=== PATIENT | female | born 2005 | race Caucasian/White ===

== ENCOUNTER 2023-03-18 08:19 | Outpatient (CLI) | payer OTHER, MEDICAID, SELFPAY ==
--- NOTE | 2023-03-18 08:30 | CT_ITS ---
WS: [id number] CT SINUSES TECHNIQUE: Noncontrast CT of the paranasal sinuses with coronal and sagittal reformatted images. CLINICAL INFORMATION: sinusitis COMPARISON: None. DLP: 330.[address] scans at [facility] use at least one of these dose optimization techniques: automated e xposure control; mA and/or kV adjustment per patient size (includes targeted exams where dose is matc hed to clinical indication); or iterative reconstruction. FINDINGS: Minimal nasal septal deviation. Paranasal sinuses are well aerated. Paranasal sinuses are well aerate d. Frontal sinuses, ethmoid air cells, maxillary sinuses well aerated. Sphenoid sinuses are well aera kori. Sphenoid sinus ostia are patent. Mastoid air cells well aerated. Ostiomeatal units are patent bi laterally with trace mucosal thickening. CT/CT sinus wo con* [id number] IMPRESSION: 1. Minimal nasal deviation measuring 2 mm. 2. Paranasal sinuses are well aerated. 3. Mild mucosal thickening along the ostiomeatal units which are patent. 4. Mastoid air cells well aerated. Normal posterior nasopharynx. 5. No other suspicious findings.
== END 2023-03-18 08:20 | disposition home or self-care (01) ==
LOC: RAD 08:22
PROVIDERS: Visit Provider Otolaryngology
DX: J32.9 Chronic sinusitis, unspecified (principal)
CPT/HCPCS: 70486

== ENCOUNTER 2023-11-10 17:10 | Emergency (ER) | payer MEDICAID, SELFPAY ==
[2023-11-10 17:13] VITALS: BP 127/78; PULSE 82; RESP 18; TEMP 36.6; O2SAT 100; BMI 27.4
--- NOTE | 2023-11-10 17:16 | ECG_ITS ---
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 Measurements Intervals [place] Rate: 76 P: 73 NV: 153 QRS: 86 QRSD: 85 T: 62 QT: 360 QTc: 405 Interpretive Statements SINUS RHYTHM WITH MARKED SINUS ARRHYTHMIA No previous ECG available for comparison Electronically Signed On 11-11-2023 15:39:40 CDT by Quin Ramirez M.D. [id number]
--- NOTE | 2023-11-10 17:16 | XRR_ITS ---
PROCEDURE INFORMATION: Exam: XR Chest Exam date and time: 11/10/2023 5:52 PM Age: 18 years old Clinical indication: Angina pectoris; Patient HX: Lt anterior chest pain TECHNIQUE: Imaging protocol: Radiologic exam of the chest. Views: 1 view. COMPARISON: No relevant prior studies available. FINDINGS: Lungs: Unremarkable. No consolidation. Pleural spaces: Unremarkable. No pleural effusion. No pneumothorax. Heart/Mediastinum: Unremarkable. No cardiomegaly. Bones/joints: Unremarkable. XR/XR chest 1V portable [id number] IMPRESSION: No acute findings.
--- NOTE | 2023-11-10 17:54 | ED_ITS ---
HPI - Chest Pain 2 General: Chief Complaint: Chest Pain Stated Complaint: chest pain Time Seen by Provider: 11/10/23 17:43 History of Present Illness: 18-year-old female comes in today with c omplaints of chest discomfort in the left chest wall for the last 4 days. Patient reports that it feels like pressure. Patient has no chronic medical problems. Patient has had her appendix and gallbladder both removed. Patient does take medications for depression, anxiety, and allergies. Patient was on a cruise when the symptoms started. Patient just recently got back from the cruise. Respirations are even. Patient appears nontoxic. Patient appears in mild pain. Review of Systems 2 General: Reports: 10 or more systems reviewed and unremarkable except in HPI and below Card: Reports: chest pain PFSH ED 2 PFSH: Surgical History Hx of cholecystectomy Social History Smoking and tobacco/nicotine status: current every day tobacco/nicotine user e- cigarettes E-Cigarette Details: vaporizer device Female Reproductive History: Date of last menstrual period: 10/04/23 Physical Exam 2 Const: COMMON NORMALS: alert HENMT: COMMON NORMALS: normocephalic HEAD & SCALP: normocephalic Neck/C-Spine: COMMON NORMALS: full ROM Chest: COMMONS NORMALS: normal palpation of entire chest wall Resp: COMMON NORMALS: normal respiratory effort and clear to auscultation bilaterally AUSCULTATION: clear to auscultation bilaterally Cardio: COMMON NORMALS: regular rate and regular rhythm RATE: regular rate RHYTHM: regular rhythm GI: COMMON NORMALS: Soft to palpation and non-tender PALPATION: Yes Soft to palpation : COMMON NORMALS: Yes no CVA tenderness BLADDER/KIDNEY EXAM: Yes no CVA tenderness Back/Pelvis: COMMON NORMALS: no CVA tenderness and thoracic and lumbar spine normal to inspection Extremity: COMMON NORMALS: no pedal edema Neuro: SENSORIUM/ORIENTATION: Yes alert Skin: COMMON NORMALS: turgor normal GENERAL SKIN EXAM: turgor normal Course 2 Vital Signs: Vital signs: Vital Signs Temperature 97.9 F 11/10/23 17:13 Pulse Rate 82 11/10/23 17:13 Respiratory Rate 18 11/10/23 17:13 Blood Pressure 127/78 11/10/23 17:13 Pulse Oximetry 100 11/10/23 17:13 Oxygen Delivery Me thod Room Air 11/10/23 17:13 MDM - Chest Pain Medical Decision Making 18-year-old female comes in today with chest pressure/pain. Patient reports symptoms for last 4 days. Patient reports improvement in pain with rest. Patient appears nontoxic. Respirations are even lungs are clear to auscultation. Skin is warm and dry. Vital signs are normal. Differential diagnosis includes but not limited to PE, ACS, pericarditis, myocarditis, anxiety, pleurisy. 1850, CBC and CMP were unremarkable. Troponin was normal. EKG showed normal sinus rhythm with sinus arrhythmia. Chest x-ray was normal. Inflammatory markers said rate and CRP were both negative. D-dimer was negative. hCG was positive. Believe the patient's symptoms are probably secondary to her and recent cruise ship adventure. Patient was upset about being but family was present and were going to take her and talk with her about it further. 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 Patient was agreeable to plan of care and need for follow-up or return to the ER. Lab Data 11/10/23 17:49 11/10/23 17:49 Radiology Impressions Chest X-Ray 11/10/23 17:16 IMPRESSION: No acute findings. Laboratory Results WBC 7.63 10^3/uL (4.5-13.0) 11/10/23 17:49 RBC 4.69 10^6/uL (3.85-5.65) 11/10/23 17:49 Hgb 14.80 g/dL (12.4-14.8) 11/10/23 17:49 Hct 44.1 % (36-47) 11/10/23 17:49 MCV 94.0 fl (85-98) 11/10/23 17:49 MCH 31.6 pg (27-33) 11/10/23 17:49 MCHC 33.6 g/dL (30-55) 11/10/23 17:49 RDW 11.7 % (12.1-15.1) L 11/10/23 17:49 Plt Count 276 10^3/cmm (157-399) 11/10/23 17:49 MPV 11.2 fL (7.4-10.4) H 11/10/23 17:49 Neut % (Auto) 73.4 % 11/10/23 17:49 Lymph % (Auto) 18.1 % 11/10/23 17:49 Weber % (Auto) 6.0 % 11/10/23 17:49 Eos % (Auto) 1.4 % 11/10/23 17:49 Baso % (Auto) 0.8 % 11/10/23 17:49 Neut # (Auto) 5.60 10^3/uL (1.8-8.0) 11/10/23 17:49 Lymph # (Auto) 1.4 10^3/uL (1.5-6.5) L 11/10/23 17:49 Weber # (Auto) 0.5 10^3/uL (0.2-0.9) 11/10/23 17:49 Eos # (Auto) 0.1 10^3/uL (0.0-0.8) 11/10/23 17:49 Baso # (Auto) 0.1 10^3/uL (0.0-0.1) 11/10/23 17:49 Nucleated RBC % (auto) 0 % 11/10/23 17:49 Nucleated RBCs # 0.0 /100WBC 11/10/23 17:49 ESR 2 mm/hr (0-15) 11/10/23 17:49 D-Dimer <= 0.27 ug/mLFEU (0-0.59) 11/10/23 17:49 Sodium 142 mmol/L (136-145) 11/10/23 17:49 Potassium 4.4 mmol/L (3.5-5.1) 11/10/23 17:49 Chloride 105 mmol/L (98-107) 11/10/23 17:49 Carbon Dioxide 27 mmol/L (22-29) 11/10/23 17:49 Anion Gap 14.4 (5-19) 11/10/23 17:49 BUN 13 mg/dL (6-20) 11/10/23 17:49 Creatinine 0.7 mg/dL (0.5-0.9) 11/10/23 17:49 GFR Calculation 106.7 mL/min (90-130) 11/10/23 17:49 Glucose 111 mg/dL (65-115) 11/10/23 17:49 Calculated Osmolality 295 mOsm/kg (285-295) 11/10/23 17:49 Calcium 9.6 mg/dL (8.5-10.5) 11/10/23 17:49 Total Bilirubin 0.3 mg/dL (0.15-1.2) 11/10/23 17:49 AST 17 U/L (0-32) 11/10/23 17:49 ALT 17 U/L (0-33) 11/10/23 17:49 Alkaline Phosphatase 71 U/L (35-105) 11/10/23 17:49 Troponin T Baseline < 6 ng/L (0-10) 11/10/23 17:49 C-Reactive Protein 3.0 mg/L (0.0-4.9) 11/10/23 17:49 NT-Pro-B Natriuret Pep < 36 pg/mL (0-125) 11/10/23 17:49 Total Protein 8.0 g/dL (6.6-8.7) 11/10/23 17:49 Albumin 4.7 g/dL (3.5-5.2) 11/10/23 17:49 Globulin 3.3 g/dL (1.3-4.6) 11/10/23 17:49 Lipase 19 U/L (13-60) 11/10/23 17:49 HCG, Qual Positive (Negative) H 11/10/23 17:49 All radiology interpretation(s) finalized by discharge EKG Data EKG 1: EKG interpretation date: 11/10/23 EKG interpretation time: 17:20 Prior EKG tracings: not available for review Interpretation: EKG shows a sinus rhythm with a irregular rate at [address] elevation or ectopy is noted. No prior exams were available. Computer generated interpretation: Sinus rhythm with marked sinus arrhythmia, borderline EKG, unconfirmed report. Discharge Plan Discharge Patient Disposition: Home Clinical Impression: Chest pain Qualifiers: Chest pain type: unspecified Qualified Code(s): R07.9 - Chest pain, unspecified Qualifiers: Weeks of gestation: less than 8 weeks Qualified Code(s): Z3A.01 - Less than 8 weeks gestation of Condition: Stable Prescriptions: No Action hydroxyzine HCl 25 mg tablet 25 mg PO BID PRN montelukast [Singulair] 10 mg tablet 10 mg PO DAILY Zyrtec 10 mg capsule 10 mg PO DAILY PRN fluticasone propionate 50 mcg/actuation spray,suspension 1 spray intranasal DAILY Rx Instructions: administer into each nostril methylprednisolone [Medrol (Gerry)] 4 mg tablets,dose pack See Rx Instructions PO PER PKG DIR Qty: 21 0RF Rx Instructions: PO PER PKG DIR Discharge Orders: Discharge ED (Routine); Ordered 11/10/23 Ordered By: Jet Shelby Discharge Diet: Usual diet Discharge Activity: Increase activity as tolerated Patient Instructions: (ED) Activity Restrictions/Additional Instructions: Follow-up with primary care provider. Return to ED for new concerns. Coding Level of Care Code ED Monologist for Kathy Gibbs
[2023-11-10 17:56] LABS: Basophils # 0.1 10^3/uL (0.0-0.1); Basophils % 0.8 %; Eosinophils # 0.1 10^3/uL (0.0-0.8); Eosinophils % 1.4 %; Hematocrit 44.1 % (36-47); Lymphocytes # 1.4 10^3/uL (1.5-6.5); Lymphocytes % 18.1 %; Mean Corpuscular HGB Conc 33.6 g/dL (30-55); Mean Corpuscular Hemoglobin 31.6 pg (27-33); Mean Platelet Volume 11.2 fL (7.4-10.4); Monocytes # 0.5 10^3/uL (0.2-0.9); Neutrophils % 73.4 %; Nucleated Red Blood Cells % 0 %; Platelet Count 276 10^3/cmm (157-399); Red Blood Count 4.69 10^6/uL (3.85-5.65); Red Cell Distribution Width 11.7 % (12.1-15.1); White Blood Count 7.63 10^3/uL (4.5-13.0)
[2023-11-10 17:59] LABS: Erythrocyte Sedimentation Rate 2 mm/hr (0-15)
[2023-11-10 18:16] LABS: HCG, Serum Qual Positive (Negative)
[2023-11-10 18:20] LABS: D Dimer <= 0.27 ug/mLFEU (0-0.59); Troponin(5th) Baseline < 6 ng/L (0-10)
[2023-11-10 18:31] LABS: Alanine Aminotransferase 17 U/L (0-33); Albumin Level 4.7 g/dL (3.5-5.2); Alkaline Phosphatase 71 U/L (35-105); Anion Gap 14.4 (5-19); Aspartate Amino Transferase 17 U/L (0-32); Blood Urea Nitrogen 13 mg/dL (6-20); Calcium 9.6 mg/dL (8.5-10.5); Carbon Dioxide 27 mmol/L (22-29); Chloride 105 mmol/L (98-107); Creatinine Clr Calc Pharmacy 125.1726; Globulin 3.3 g/dL (1.3-4.6); Glomerular Filtration Rate 106.7 mL/min (90-130); Glucose 111 mg/dL (65-115); Lipase 19 U/L (13-60); NT Pro B Type Natriuretic Pept < 36 pg/mL (0-125); Osmolality Calculated 295 mOsm/kg (285-295); Potassium 4.4 mmol/L (3.5-5.1); Sodium 142 mmol/L (136-145); Total Bilirubin 0.3 mg/dL (0.15-1.2)
[2023-11-10 19:20] VITALS: BP 110/72; PULSE 79; RESP 16; O2SAT 98
== END 2023-11-10 19:21 | disposition home or self-care (01) ==
PROVIDERS: Emergency Medicine; Emergency Provider Nurse Practitioner Family
DX: O26.891 Other specified pregnancy related conditions, first trimester (principal); R07.9 Chest pain, unspecified; O99.331 Smoking (tobacco) complicating pregnancy, first trimester; F17.290 Nicotine dependence, other tobacco product, uncomplicated; Z3A.01 Less than 8 weeks gestation of pregnancy
CPT/HCPCS: 71045; 80053; 83690; 83880; 84484; 84703; 85025; 85378; 85651; 86140; 93005; 99285